=== PATIENT | female | born 1940 | race Caucasian/White ===

== ENCOUNTER 2016-07-01 10:52 | Emergency (ER) | payer OTHER ==
[~2016-07-01] VITALS: Ht 162.6 cm; Wt 82.0 kg
[~2016-07-01 10:52] MED LIST: ALPR0.25 PO; AMLO5TAB2 PO; CARV6.252 PO; CEFD300C2 PO; DOXY100T PO; FENO160T PO; FURO40TA6 PO; GUAI200T3 PO; HYDR25TA6 PO; LOSA100T6 PO; LOVA40TA2 PO; METF500T4 PO; POTA20TA6 PO; PRED50TA PO; WARF7.5T6 PO; [UNRECOGNIZED DRUG - CODE] PO
[2016-07-01] MEDS ORDERED: SODIUM CHLORIDE FLUSH 10ML SYR IVF ONE (11:30)
[2016-07-01 11:44] LABS: HEMOGLOBIN 14.4 g/dL (11.7-16.4)
[2016-07-01 12:03] LABS: BLOOD UREA NITROGEN 38 mg/dL (7-18)
[2016-07-01 12:04] LABS: ASPARTATE AMINO TRANSFERASE 15 U/L (15-37)
[2016-07-01 14:30] VITALS: BP 172/75
== END 2016-07-01 15:00 | disposition home or self-care (01) ==
LOC: ED 12:10
DX: R10.2 Pelvic and perineal pain (principal); R39.15 Urgency of urination; K21.9 Gastro-esophageal reflux disease without esophagitis; J44.9 Chronic obstructive pulmonary disease, unspecified; I10 Essential (primary) hypertension; Z88.8 Allergy status to other drugs, medicaments and biological substances
CPT/HCPCS: 36415; 80053; 81001; 83690; 85025; 99284

== ENCOUNTER 2017-07-17 12:53 | Emergency (ER) | payer OTHER ==
[~2017-07-17] VITALS: Ht 160 cm; Wt 127.0 kg
[~2017-07-17 12:53] MED LIST changes: -CEFD300C2 PO; +CEFD300C37 PO
[2017-07-17] MEDS ORDERED: ALBU8.5H8 INH (13:51)
[2017-07-17] MEDS ORDERED: ESCI10TA10 PO (13:51)
[2017-07-17] MEDS ORDERED: FLUT16SP NAS (13:51)
[2017-07-17] MEDS ORDERED: BUDE10.2 NAS (13:51)
[2017-07-17] MEDS ORDERED: STATIN (13:51)
[2017-07-17] MEDS ORDERED: ATEN50TA41 PO (13:51)
[2017-07-17 14:27] LABS: FREE T4 (FREE THYROXINE) 0.95 ng/dL (0.76-1.46); THYROID STIMULATING HORMONE 1.52 mIU/L (0.358-3.740)
[2017-07-17 14:59] VITALS: BP 131/56
== END 2017-07-17 15:02 | disposition home or self-care (01) ==
LOC: ED 15:00
DX: I48.2 Chronic atrial fibrillation (principal); K21.9 Gastro-esophageal reflux disease without esophagitis; E11.9 Type 2 diabetes mellitus without complications; I10 Essential (primary) hypertension; I25.2 Old myocardial infarction; J44.9 Chronic obstructive pulmonary disease, unspecified; Z79.01 Long term (current) use of anticoagulants; Z87.891 Personal history of nicotine dependence; Z99.81 Dependence on supplemental oxygen
CPT/HCPCS: 36415; 84439; 84443; 93005; 99285

== ENCOUNTER → 2017-09-28 | Outpatient (CLI) | payer OTHER ==
[~2017-09-28] MED LIST changes: +ALBU8.5H8 INH; +ATEN50TA41 PO; +BUDE10.2 NAS; +ESCI10TA10 PO; +FLUT16SP NAS; -METF500T4 PO; +METF500T5 PO; +STATIN; +WARF7.5T46 PO; -WARF7.5T6 PO
== END | disposition home or self-care (01) ==
LOC: CVU 09:24
PROVIDERS: ATTEND Nurse Practitioner Family
DX: I08.1 Rheumatic disorders of both mitral and tricuspid valves (principal); I10 Essential (primary) hypertension; E78.5 Hyperlipidemia, unspecified; I25.2 Old myocardial infarction; Z87.891 Personal history of nicotine dependence; Z85.43 Personal history of malignant neoplasm of ovary; Z85.42 Personal history of malignant neoplasm of other parts of uterus
CPT/HCPCS: 93306

== ENCOUNTER 2018-02-26 06:45 | Day surgery (SDC) | payer OTHER ==
[~2018-02-26] VITALS: Ht 160.8 cm; Wt 118.3 kg
[~2018-02-26 06:45] MED LIST changes: -AMLO5TAB2 PO; +AMLO5TAB7 PO; -LOSA100T6 PO; +LOSA100T7 PO; +METF500T17 PO; -METF500T5 PO
[2018-02-26] MEDS ORDERED: PRIM50TA PO (08:23)
[2018-02-26 08:24] VITALS: BP 130/57
[2018-02-26 08:26] LABS: INTERNATIONAL NORMALIZED RATIO 1.08 (0.93-1.1); PROTHROMBIN TIME 11.4 Seconds (9.6-11.5)
[2018-02-26] MEDS: SODIUM CHLORIDE 0.9% 1,000 ML IV SCH ×2 (08:37→08:52)
[2018-02-26] MEDS ORDERED: MIDAZOLAM 1 MG/ML, 5ML ONE (08:56)
[2018-02-26] MEDS ORDERED: FLUMAZENIL 0.1 MG/1 ML, 5ML ONE (08:56)
[2018-02-26] MEDS ORDERED: NALOXONE 1 MG/ML, 2ML ONE (08:56)
[2018-02-26] MEDS ORDERED: FENTANYL PF 100 MCG/2ML ONE (08:56)
[2018-02-26] MEDS ORDERED: LIDOCAINE-MPF 1%, 5ML ONE (09:05)
== END 2018-02-26 12:15 | disposition home or self-care (01) ==
LOC: OUT 06:45
PROVIDERS: ATTEND Surgery
DX: J98.4 Other disorders of lung (principal); I10 Essential (primary) hypertension; E11.9 Type 2 diabetes mellitus without complications; I48.91 Unspecified atrial fibrillation; Z87.891 Personal history of nicotine dependence
CPT/HCPCS: 32405; 36415; 71045; 77012; 85610; 88305; 99156; C2613; J2250; J3010; J7030; 99157; J2310

== ENCOUNTER 2018-04-12 05:43 | Day surgery (SDC) | payer MEDICARE, OTHER ==
[~2018-04-12] VITALS: Ht 160 cm; Wt 116.0 kg
[~2018-04-12 05:43] MED LIST changes: +AMLO-150 PO; -AMLO5TAB7 PO; +METO50TA82 PO; +OXYC5TAB3 PO; +POLY17PO5 PO; +PRIM50TA PO; +SIMV40TA PO
[2018-04-12] MEDS ORDERED: SODIUM CHLORIDE 0.9% 1,000 ML IV SCH (06:25)
[2018-04-12 06:26] VITALS: BP 167/71
[2018-04-12 07:10] LABS: INTERNATIONAL NORMALIZED RATIO 1.1 (0.93-1.1); PROTHROMBIN TIME 11.6 Seconds (9.6-11.5)
[2018-04-12] MEDS ORDERED: NALOXONE 1 MG/ML, 2ML ONE (07:29)
[2018-04-12] MEDS ORDERED: FENTANYL PF 100 MCG/2ML ONE (07:29)
[2018-04-12] MEDS ORDERED: LIDOCAINE-MPF 1%, 5ML ONE (07:29)
[2018-04-12] MEDS ORDERED: MIDAZOLAM 1 MG/ML, 5ML ONE (07:29)
[2018-04-12] MEDS ORDERED: FLUMAZENIL 0.1 MG/1 ML, 5ML ONE (07:29)
== END 2018-04-12 14:00 | disposition home or self-care (01) ==
LOC: OUT 05:43
PROVIDERS: ATTEND Surgery
DX: R04.89 Hemorrhage from other sites in respiratory passages (principal); J44.9 Chronic obstructive pulmonary disease, unspecified; F32.9 Major depressive disorder, single episode, unspecified; E11.9 Type 2 diabetes mellitus without complications; E78.00 Pure hypercholesterolemia, unspecified; I10 Essential (primary) hypertension; E66.9 Obesity, unspecified; Z90.710 Acquired absence of both cervix and uterus; Z98.890 Other specified postprocedural states; Z79.899 Other long term (current) drug therapy; Z87.891 Personal history of nicotine dependence; Z79.84 Long term (current) use of oral hypoglycemic drugs
CPT/HCPCS: 32405; 36415; 71045; 77012; 85610; 85730; 88305; 99156; C2613; J2250; J3010; 99157; J2310

== ENCOUNTER → 2018-06-20 | Outpatient (CLI) | payer MEDICARE ==
[~2018-06-20] MED LIST changes: +LOSA100T14 PO; -LOSA100T7 PO
== END | disposition home or self-care (01) ==
LOC: PETCFH 13:25
PROVIDERS: ATTEND Surgery
DX: J98.4 Other disorders of lung (principal); C34.90 Malignant neoplasm of unspecified part of unspecified bronchus or lung
CPT/HCPCS: 78815; A9552

== ENCOUNTER 2018-07-05 09:06 | Outpatient (CLI) | payer MEDICARE | END 2018-07-05 23:59 | disposition home or self-care (01) | LOC: ROC 09:06 | PROVIDERS: ATTEND Radiology Radiation Oncology | DX: R91.8 Other nonspecific abnormal finding of lung field (principal) | CPT/HCPCS: 99214; G0463 ==

== ENCOUNTER 2018-10-31 13:59 | Outpatient (CLI) | payer MEDICARE | END 2018-10-31 23:59 | disposition home or self-care (01) | LOC: CFH 13:59 | PROVIDERS: ATTEND Radiology Radiation Oncology | DX: C34.91 Malignant neoplasm of unspecified part of right bronchus or lung (principal); R91.8 Other nonspecific abnormal finding of lung field; I10 Essential (primary) hypertension | CPT/HCPCS: 71250 ==

== ENCOUNTER 2018-11-02 08:42 | Outpatient (CLI) | payer MEDICARE ==
[~2018-11-02 08:42] MED LIST changes: -FLUT16SP NAS; +FLUT16SP24 NAS; -GUAI200T3 PO; +GUAI200T37 PO
== END 2018-11-02 23:59 | disposition home or self-care (01) ==
LOC: ROC 08:42
PROVIDERS: ATTEND Radiology Radiation Oncology
DX: C34.11 Malignant neoplasm of upper lobe, right bronchus or lung (principal)
CPT/HCPCS: 99213; G0463

== ENCOUNTER → 2019-02-27 | Outpatient (CLI) | payer MEDICARE, OTHER | END | disposition home or self-care (01) | LOC: CFH 10:30 | PROVIDERS: ATTEND Radiology Radiation Oncology | DX: C34.11 Malignant neoplasm of upper lobe, right bronchus or lung (principal); J98.11 Atelectasis; M41.85 Other forms of scoliosis, thoracolumbar region; M51.34 Other intervertebral disc degeneration, thoracic region; J44.9 Chronic obstructive pulmonary disease, unspecified; E11.9 Type 2 diabetes mellitus without complications; Z87.891 Personal history of nicotine dependence; Z88.8 Allergy status to other drugs, medicaments and biological substances | CPT/HCPCS: 71250 ==

== ENCOUNTER → 2019-03-01 | Outpatient (CLI) | payer MEDICARE, OTHER | END | disposition home or self-care (01) | LOC: ROC 09:16 | PROVIDERS: ATTEND Radiology Radiation Oncology | DX: Z08 Encounter for follow-up examination after completed treatment for malignant neoplasm (principal); C34.11 Malignant neoplasm of upper lobe, right bronchus or lung; F17.200 Nicotine dependence, unspecified, uncomplicated | CPT/HCPCS: 99213; G0463 ==

== ENCOUNTER → 2019-05-23 | Outpatient (CLI) | payer MEDICARE | END | disposition home or self-care (01) | LOC: CVU 15:30 | PROVIDERS: ATTEND Internal Medicine Cardiovascular Disease | DX: I08.0 Rheumatic disorders of both mitral and aortic valves (principal); I10 Essential (primary) hypertension; I48.91 Unspecified atrial fibrillation | CPT/HCPCS: 93306 ==

== ENCOUNTER 2019-09-04 12:22 | Outpatient (CLI) | payer MEDICARE | END 2019-09-04 23:59 | disposition home or self-care (01) | LOC: CFH 12:22 | PROVIDERS: ATTEND Radiology Radiation Oncology | DX: C34.11 Malignant neoplasm of upper lobe, right bronchus or lung (principal); R91.8 Other nonspecific abnormal finding of lung field | CPT/HCPCS: 71250 ==

== ENCOUNTER 2019-09-11 08:10 | Outpatient (CLI) | payer MEDICARE | END 2019-09-11 23:59 | disposition home or self-care (01) | LOC: ROC 08:10 | PROVIDERS: ATTEND Radiology Radiation Oncology | DX: C34.11 Malignant neoplasm of upper lobe, right bronchus or lung (principal); R91.8 Other nonspecific abnormal finding of lung field | CPT/HCPCS: 99213; G0463; G2012 ==

== ENCOUNTER → 2020-01-20 | Outpatient (CLI) | payer MEDICARE ==
[~2020-01-20] MED LIST changes: +OMNIPAQUE 350 MG/ML, 75ML BOTTLE ONE
== END | disposition home or self-care (01) ==
LOC: CFH 09:36
PROVIDERS: ATTEND Radiology Radiation Oncology
DX: C34.11 Malignant neoplasm of upper lobe, right bronchus or lung (principal); J90 Pleural effusion, not elsewhere classified; R91.8 Other nonspecific abnormal finding of lung field; R59.0 Localized enlarged lymph nodes
CPT/HCPCS: 71260; Q9967

== ENCOUNTER 2020-07-20 12:39 | Outpatient (CLI) | payer MEDICARE ==
[~2020-07-20 12:39] MED LIST changes: -OMNIPAQUE 350 MG/ML, 75ML BOTTLE ONE; -OXYC5TAB3 PO; +OXYC5TAB98 PO; +POTA-143 PO; -POTA20TA6 PO
[2020-07-20] MEDS ORDERED: OMNIPAQUE 350 MG/ML, 75ML BOTTLE ONE (16:20)
== END 2020-07-20 23:59 | disposition home or self-care (01) ==
LOC: CFH 12:39
PROVIDERS: ATTEND Radiology Radiation Oncology
DX: C34.11 Malignant neoplasm of upper lobe, right bronchus or lung (principal); J90 Pleural effusion, not elsewhere classified; J92.9 Pleural plaque without asbestos; J98.4 Other disorders of lung; M51.34 Other intervertebral disc degeneration, thoracic region; E04.1 Nontoxic single thyroid nodule
CPT/HCPCS: 71260; 82565; Q9967

== ENCOUNTER 2020-07-31 08:56 | Outpatient (CLI) | payer MEDICARE ==
[~2020-07-31 08:56] MED LIST changes: -POTA-143 PO; +POTA20TA6 PO
== END 2020-07-31 23:59 | disposition home or self-care (01) ==
LOC: ROC 08:56
PROVIDERS: ATTEND Radiology Radiation Oncology
DX: Z08 Encounter for follow-up examination after completed treatment for malignant neoplasm (principal); Z85.118 Personal history of other malignant neoplasm of bronchus and lung
CPT/HCPCS: 99212; 99442; G0463; G2251